=== PATIENT | female | born 1970 | race Two or more races ===

== ENCOUNTER 2023-12-22 06:56 | Day surgery (SDC) | payer OTHER ==
[2023-12-17 14:12] VITALS: BP 130/75
[~2023-12-22] VITALS: Ht 165.1 cm; Wt 74.8 kg
[~2023-12-22 06:56] MED LIST: CARAFATE1 G PO; LEVSIN/SL0.125 MG PO; NORVASC5 MG PO; PROTONIX40 MG PO
[2023-12-22] MEDS ORDERED: POVIDONE-IODINE 118 ML BOTT TOP ONE (12:15)
[2023-12-22] MEDS ORDERED: IBU800 MG PO (12:39)
[2023-12-22] MEDS ORDERED: NEURONTIN300 MG PO (12:40)
[2023-12-22] MEDS ORDERED: MORPHINE SULFATE 4 MG/ML VIAL IV ONE ×2 (13:00→13:30)
== END 2023-12-22 16:25 | disposition home or self-care (01) ==
LOC: CIR.AMB 06:56
PROVIDERS: ATTEND Obstetrics & Gynecology Gynecology
DX: D27.1 Benign neoplasm of left ovary (principal); Z88.0 Allergy status to penicillin; Z91.040 Latex allergy status; I10 Essential (primary) hypertension; K21.9 Gastro-esophageal reflux disease without esophagitis

== ENCOUNTER 2023-12-29 18:32 | Emergency (ER) | payer OTHER ==
[~2023-12-29] VITALS: Ht 162.6 cm; Wt 74.8 kg
[~2023-12-29 18:32] MED LIST changes: +IBU800 MG PO; +NEURONTIN300 MG PO
[2023-12-29 22:00] LABS: HEMATOCRIT 36.8 % (36.0-45.00); HEMOGLOBIN 12.5 g/dL (12.0-15.00); MEAN CELL VOLUME 86.8 fL (80.00-100.00); MEAN CORPUSCULAR HEMOGLOBIN 29.4 pg (27.00-32.0); MEAN CORPUSCULAR HGB CONC 33.9 g/dl (32.0-36.0); PLATELET COUNT 433 K/uL (150-450); RED BLOOD COUNT 4.24 M/uL (4.00-6.00); RED CELL DISTRIBUTION WIDTH 14.4 % (11.5-14.5)
[2023-12-29 22:28] LABS: CALCIUM 9.7 mg/dL (8.5-10.1); CREATININE SERUM 0.72 mg/dL (0.55-1.02); GFR 85.4; POTASSIUM 4.23 mEq/L (3.5-5.1)
[2023-12-29] MEDS ORDERED: hydrOXYzine PAMOATE 25 MG CAPSULE PO STA (22:41)
== END 2023-12-29 23:10 | disposition home or self-care (01) ==
LOC: ER 18:34
PROVIDERS: General Practice
DX: I10 Essential (primary) hypertension (principal); Z88.0 Allergy status to penicillin; Z91.040 Latex allergy status